=== PATIENT | female | born 1985 | race African-American/Black ===

== ENCOUNTER 2021-04-28 00:02 | Day surgery (SDC) | payer OTHER, SELFPAY ==
[2021-04-24 15:06] VITALS: BMI 28.3
--- NOTE | 2021-04-24 15:20 | PC.NURSE ---
Report to the Outpatient Waiting Room, entrance under the green pavilion located off [facility], at time 1000 on date 04/28/21. OR Time: 1200. - You will be asked a series of questions to screen for COVID 19 for your protection. - A mask is required within the hospital. - No visitors are allowed at this time. Preoperative COVID Testing Requirements: No COVID Test needed if: (proof is required; if not received patient will have Rapid Test prior to entry) - Patient has received COVID Vaccine at least 14 days prior to procedure date or - Patient has positive COVID test result within last 90 days of surgery date. PT + 04/05 - TO EMAIL RECORD COVID Test needed if above criteria is not met Patients may have clear liquids (water, carbonated beverages, clear teas, apple juice) until 3 hours prior to surgery with a maximum of 20 ounces. - No food from midnight until time of surgery Take the following medications with a SIP of water the morning of surgery: NONE Medications to discontinue per physician: VITAMINS/SUPPLEMENTS Date to take last dose: 04/24/21 Please no make-up, nail thai, hairspray, perfume, deodorant, or body powder the day of surgery. No jewelry (including any body piercings) or valuables the day of surgery, leave them at home. Please take a shower or bath the night before, or the morning of, surgery with an antibacterial soap. Wear comfortable, loose fitting clothing. - Jewelry must be removed prior to entering the operating room. Rings and piercings that are not removed may be cut off. - The hospital will not accept responsibility for valuables. - Please leave all valuables, including medications, at home the day of surgery. If you are going home after surgery, a licensed after school driver must drive you home. - NO public transportation without another adult. - We recommend that an adult stay with you for 24 hours following discharge. - We also recommend that you do not drive, make important decision, drink alcoholic beverages, or take any drugs that were not prescribed by your health care provider for at least 24 hours after your discharge time. Follow any additional instructions given to you from your surgeon. Telephone instructions given to ARACELI RYAN and asked if any additional questions and then verbalized understanding. Patient advised to call surgeon office or pre surgery nurse liaison [phone] if any additional questions.
[2021-04-28] VITALS (8 sets, daily range): BP systolic 102–114; BP diastolic 68–84; PULSE 62–88; RESP 11–19; TEMP 36.7–36.9; O2SAT 92–100
[2021-04-28] MEDS: LACTATED RINGERS 1,000 ML 30 ML IV CONT ×2 (11:00→14:35)
--- NOTE | 2021-04-28 11:06 | WPDANESEPPF ---
Anes - Initial Pre Proc Eval Procedure: Operation Date: 04/28/21 13:00 Proposed Procedures p Laparoscopic Bilateral Tubal Ligation with Fallopian Rings - Amarilys Lama MD Date/Time: 04/28/21 11:06 Surgeon: Amarilys Lama MD Pre Op Diagnosis: sterilization Patient Data Age: 36 Gender: F Height: 1.6 m Weight: 72.67 kg Allergies Allergy/AdvReac Type Severity Reaction Status Date / Time No Known Allergies Allergy Verified 04/24/21 15:05 Home Medications Medication Instructions Recorded Confirmed Type ascorbic acid (vitamin C) [Vitamin 250 mg PO DAILY 04/24/21 04/24/21 History C] cholecalciferol (vitamin D3) 25 mcg PO DAILY 04/24/21 04/24/21 History [Vitamin D3] ferrous sulfate [Iron (ferrous 325 mg PO DAILY 04/24/21 04/24/21 History sulfate)] Patient hx anesthesia problems: none Family hx anesthesia problems: none Results Review: All pre-operative results and documents have been reviewed as part of the pre-operative evaluation. [facility] Past Medical History Medical History (Updated 04/28/21 @ 11:06 by Sanket Boo MD) Anemia Social History Social History Smoking status: Never smoker Alcohol intake: never Substance use: never Substance use type: does not use Living arrangements: alone Spiritual care concerns: No Anes - Eval Final PreProcedure Day of Procedure 04/28/21 11:06 Patient weight: overweight Heart: regular rate and rhythm Lungs: clear to auscultation Airway: Mallampati scale class II Neurological: alert and oriented Last oral intake: >/= 8 hours ASA classification: II Emergent: no Anesthetic plan: proceed Anesthesia type and monitoring: general ETT and standard monitoring Results Review: All pre-operative results and documents have been reviewed as part of the pre-operative evaluation. Informed Consent: The patient's anesthetic plan and its attendant risks and benefits were discussed with the patient/family/POA. Questions were solicited and answers provided to the satisfaction of the patient/family/POA.
--- NOTE | 2021-04-28 11:09 | P.HP_ITS ---
History of Present Illness History of Present Illness Consent: Risks, benefits, and alternatives have been discussed and questions answered. Patient agrees to proceed with procedure. Chief complaint: sterilization Narrative: Barbara Vanegas is a 36 year old female who has completed her childbearing. She wants to proceed with permanent sterilization. Risks of failure with increased ectopic as well as the permanent and irreversible nature of BTL discussed. Risks of surgery including infection, bleeding, and injury to internal organs discussed. Patient agrees to proceed. Review of Systems Review of Systems: not repeated day of surgery; patient states no changes in status PMFSH Past Medical History Medical History (Updated 04/28/21 @ 11:13 by Amarilys Lama MD) Anemia (normal spontaneous vaginal delivery) x 2 Surgical History Surgical History (Updated 04/28/21 @ 11:13 by Amarilys Lama MD) History of appendectomy Social History Social History Smoking status: Never smoker Alcohol intake: never Substance use: never Substance use type: does not use Living arrangements: alone Spiritual care concerns: No Meds Home Medications and Allergies Home Medications Medication Instructions Recorded Confirmed Type ascorbic acid (vitamin C) [Vitamin 250 mg PO DAILY 04/24/21 04/24/21 History C] cholecalciferol (vitamin D3) 25 mcg PO DAILY 04/24/21 04/24/21 History [Vitamin D3] ferrous sulfate [Iron (ferrous 325 mg PO DAILY 04/24/21 04/24/21 History sulfate)] Allergies Allergy/AdvReac Type Severity Reaction Status Date / Time No Known Allergies Allergy Verified 04/24/21 15:05 Exam Const: General: healthy appearing and alert Orientation/consciousness: patient oriented x3 GI: GI Palp: Yes Soft to palpation, No Tenderness to palpation present (GI) and No Palpable mass present : External Female Exam: normal external appearance Speculum Exam - Va maxx: normal appearance of the vagina and normal vaginal discharge Speculum Exam - Cervix: normal appearance of the cervix Bimanual exam- vagina & uterus: uterine size normal and consistency normal Bimanual Exam- Adnexa, other: normal adnexae and No adnexal tenderness Neuro: General: patient oriented x3 Assessment and Plan Assessment and plan (1) Encounter for sterilization: Code(s): Z30.2 - Encounter for sterilization Status: Acute Assessment and Plan: Plan to proceed with laparoscopic BTL
[2021-04-28] MEDS: KETOROLAC 15 MG/ML VIAL (*BKC) IV PUSH (11:17)
[2021-04-28] MEDS: ACETAMINOPHEN 500 MG TABLET 1000 MG PO (11:17)
--- NOTE | 2021-04-28 11:42 | WPDHPUPDATE1 ---
History and Physical Update Update Date/Time: 04/28/21 11:42 History and Physical has been reviewed, including an updated exam of the patient. There are NO changes in the patient's condition. Risks, benefits, and alternatives have been discussed and questions answered. Patient agrees to proceed with procedure.
[2021-04-28 11:43] LABS: Hematocrit 39.1 % (37.0-47.0); Hemoglobin 12.5 g/dL (12.0-15.0)
--- NOTE | 2021-04-28 13:40 | P.OP_ITS ---
Procedure Note - Detailed Date of Procedure 04/28/21 Pre-op Diagnosis sterilization Post-op Diagnosis same Procedure Performed Laparoscopic bilateral tubal ligation with Falope ring Surgeon Amarilys Lama MD Anesthesia general Findings Normal-appearing tubes and ovaries. Multiple fibroids Description of Procedure The patient was taken to the operating room and placed under anesthesia in the dorsal lithotomy position. She was prepped and draped in usual sterile fashion. Bladder was drained with a red rubber catheter. [place] speculum was placed in the vagina and the cervix grasped on the anterior lip with a tenaculum. The acorn manipulator is placed and the speculum removed. Attention was then to turned to the abdomen where a vertical skin incision was made in the base of the umbilicus. The abdomen was tented and the Veress needle placed. Water drop test is normal. Opening patient pressure was 8mmHg. Pneumoperitoneum was obtained with CO2 to a patient pressure of 15mmHg. The Veress needle was removed and the 5mm Optiview trocar was placed. Intra-abdominal placement was confirmed with the laparoscope. The patient was then placed in Trendelenburg position. The 8mm trocar was placed 2cm above the symphysis pubis in the midline. The blunt probe was used to bring the tubes into view. The ring applicators used to apply ring to each tube with a good portion of tube in each ring. The instruments are removed and the pneumoperitoneum is reduced. Skin incisions were closed using 4-0 nylon in interrupted fashion. Sponge, needle, and instrument counts are correct per the OR staff. Estimated Blood Loss 5 Drains No Packing No Pathology none sent Complications No immediate complications Condition stable Disposition PACU
--- NOTE | 2021-04-28 14:07 | SUR.OPER ---
GYRUS ACMI FALOPE RING BAND KIT/LOT [id number] LEFT TUBE EXP 2021-05-24 GYRUS FALOPE RING BAND KIT/LOT [id number] RIGHT TUBE EXP 2021-05-24
[2021-04-28] MEDS: fentaNYL CITRATE INJ (*CRX) 100 MCG/2 ML VIAL 25 MCG IV PUSH ×5 (14:10→14:41)
[2021-04-28] MEDS: oxyCODONE HCL (*CRX) 5 MG TAB IR PO (15:25)
== END 2021-04-28 16:20 | disposition home or self-care (01) ==
PROVIDERS: Anesthesiology; PCP Family Medicine; Visit Provider Obstetrics & Gynecology Gynecology
PROC: (CPT 58671; principal; 2021-04-28 13:00)
DX: Z30.2 Encounter for sterilization (principal); D25.9 Leiomyoma of uterus, unspecified; D64.9 Anemia, unspecified
CPT/HCPCS: 58671; 36415; 85014; 85018; A4264; A9270; J0330; J1100; J1885; J2250; J2405; J2704; J3010; J7120